=== PATIENT | male | born 1995 | race Native Hawaiian/Other Pacific Islander ===

== ENCOUNTER 2017-02-28 13:59 | Emergency (ER) | payer OTHER ==
[~2017-02-28] VITALS: Ht 185.4 cm; Wt 88.8 kg
[2017-02-28 14:04] VITALS: TEMP 36.7; Ht 185.4 cm; Wt 88.8 kg
--- NOTE | 2017-02-28 15:11 | DIAGNOSTIC IMAGING REPORT ---
LEFT ANKLE MIN 3 VIEWS ROUTINE CLINICAL HISTORY: 21 years-old Male presenting with Left ankle pain, inversion injury. TECHNIQUE: Frontal, oblique, and lateral views of the left ankle were obtained. COMPARISON: None. FINDINGS: Ankle mortise intact. No acute fracture or malalignment. Ankle joint effusion noted. Regional soft tissues normal. No degenerative change. IMPRESSION: No acute osseous injury of the left ankle. Ankle joint effusion could be reactive to trauma. Electronically signed by: Philipp Faulkner M.D. 02/28/2017 3:10 PM Dictated Date/Time: 02/28/2017 3:09 PM
--- NOTE | 2017-02-28 15:57 | EMERGENCY ROOM VISIT NOTE ---
History First contact with patient: 14:08 Chief Complaint: ANKLE PAIN Stated Complaint: TWISTED ANKLE W/SWELLING History of Present Illness The patient is a 21 year old male who presents to the Emergency Room via private vehicle with complaints of "twisted ankle with swelling". The patient states that yesterday he was playing a game of soccer, and he accidentally inverted his left ankle. He notes that since then he has had pain at the base of the left lateral malleolus, and some swelling. He rates the pain as a 7/10. Review of Systems A complete 6-point Review of Systems was discussed with the patient, with pertinent positives and negatives listed in the History of Present Illness. All remaining Review of Systems questions can be considered negative unless otherwise specified. Past Medical/Surgical History No pertinent. Family History No pertinent. Social History Smoking Status: Current Every Day Smoker Patient lives locally and is a [employer]. Current/Historical Medications No Active Prescriptions or Reported Meds Physical Exam Vital Signs Date Time Temp Pulse Resp B/P (MAP) Pulse Ox O2 Delivery O2 Flow Rate FiO2 02/28/17 16:15 94 16 139/75 98 02/28/17 14:04 36.7 65 18 139/82 98 Room Air Physical Exam VITAL SIGNS - Vital signs and nursing notes were reviewed. Stable. GENERAL -21-year-old male appearing his stated age who is in no acute distress. Communicates well with provider and answers questions appropriately. SKIN - Without rashes. Skin overlying the left lateral malleolus is slightly edematous, but is not bruised or interrupted. HEAD - NC/AT. EXTREMITIES - No clubbing or peripheral cyanosis. No pretibial edema present. Tenderness to palpation overlying the left lateral malleolus and the region just inferior to this. There is decreased range of motion secondary to tenderness/pain in this region. No bony deformity or step-off. There is no proximal arnold tenderness, or foot tenderness. The knee is unremarkable. +5/5 strength noted in UE/LE bilaterally. Medical Decision & Procedures ER Provider Diagnostic Interpretation: LEFT ANKLE MIN 3 VIEWS ROUTINE CLINICAL HISTORY: 21 years-old Male presenting with Left ankle pain, inversion injury. TECHNIQUE: Frontal, oblique, and lateral views of the left ankle were obtained. COMPARISON: None. FINDINGS: Ankle mortise intact. No acute fracture or malalignment. Ankle joint effusion noted. Regional soft tissues normal. No degenerative change. IMPRESSION: No acute osseous injury of the left ankle. Ankle joint effusion could be reactive to trauma. Electronically signed by: Philipp Faulkner M.D. 02/28/2017 3:10 PM Dictated Date/Time: 02/28/2017 3:09 PM Medical Decision Patient was seen and evaluated as above. After obtaining a thorough history and physical examination radiographs are obtained the left ankle. Patient declined pain medication. Radiograph results as above. I agree with radiologist, no acute fracture or dislocation. Clinically I believe he has a sprain. He will be placed in a gel ankle splint, and made nonweightbearing with crutches. He is to follow with orthopedics if symptoms persist. He was educated upon management. He appears stable for outpatient management. He was educated upon worrisome symptoms in which to return, had questions answered prior to discharge, and was discharged home in good condition. In the evaluation and treatment of this patient, the following differential diagnoses were considered: Ankle Fracture, Ankle Sprain, Distal Fibula Fracture , Distal Tibia Fracture, Foot Fracture, Maisonneuve Fracture. Impression Primary Impression: Left ankle pain Departure Information Dispostion Home / Self-Care Condition GOOD Prescriptions No Active Prescriptions or Reported Meds Referrals [facility] (PCP) Mark Cadena M.D. Patient Instructions My [facility] Additional Instructions You have been treated in the Emergency Department for a left Ankle injury. You have received pain medicine in the emergency department which impairs your ability to operate a vehicle. It is illegal for you to drive after receiving these medicines. For pain control, you can use the following [id number] medicines (if >12 yo): - Regular strength (325mg/tab) Tylenol (acetaminophen) 2 tabs every 4-6 hours as needed. Do not exceed 12 tablets in a 24 hour period. Avoid taking more than 3 grams (3000 mg) of Tylenol per day. This includes any other sources of acetaminophen you may take on a regular basis. - Regular strength (200 mg/tab) Advil (ibuprofen) 1-2 tabs every 4-6 hours as needed. Do not exceed a dose of 3200 mg per day. If this is a recent injury (<24 hrs), ice can be applied to the area of pain for the first 3 days to help decrease pain and inflammation. You have been provided the number for an Orthopaedic Surgeon. You should call this number as soon as possible to establish a follow-up visit from today's Emergency Department visit. Keep the ankle brace/splint in place until cleared by Orthopedics. Use the crutches you have been provided to keep ALL weight off of the ankle until weight bearing is tolerable. Return to the Emergency Department if your current symptoms worsen despite treatment course outlined above, or if you develop any of the following symptoms : intractable pain despite aforementioned treatment course or new onset of numbness or tingling of the foot. Please return to emergency department with any new/concerning symptoms.
[2017-02-28 16:15] VITALS: BP 139/75; PULSE 94; O2SAT 98
== END 2017-02-28 16:15 | disposition home or self-care (01) ==
LOC: C.EDB 14:02 → C.EDD 16:15
DX: M25.572 Pain in left ankle and joints of left foot (principal); X50.1XXA Overexertion from prolonged static or awkward postures, initial encounter; Y92.322 Soccer field as the place of occurrence of the external cause; Y93.66 Activity, soccer; F17.210 Nicotine dependence, cigarettes, uncomplicated